=== PATIENT | female | born 1985 | race Caucasian/White ===

== ENCOUNTER 2018-01-09 17:24 | Emergency (ER) | payer MEDICAID ==
[~2018-01-09] VITALS: Ht 172.7 cm; Wt 55.5 kg
[2018-01-09] MEDS ORDERED: acetaminophen 325mg tablet PO ONE (18:15)
[2018-01-09] MEDS ORDERED: ibuprofen tablet 400 MG TABLET PO ONE (18:15)
[2018-01-09 19:31] VITALS: BP 145/71
== END 2018-01-09 19:33 | disposition home or self-care (01) ==
LOC: ER 17:25
DX: S80.12XD Contusion of left lower leg, subsequent encounter (principal); S90.31XD Contusion of right foot, subsequent encounter; M25.572 Pain in left ankle and joints of left foot; X58.XXXD Exposure to other specified factors, subsequent encounter
CPT/HCPCS: 29540; 73610; 99284